=== PATIENT | female | born 1995 | race Caucasian/White ===

== ENCOUNTER 2016-12-28 02:01 | Inpatient (IN) | payer MEDICAID ==
[~2016-12-28] VITALS: Ht 162.6 cm; Wt 71.2 kg
[~2016-12-28 02:01] MED LIST: ABILIFY10 MG PO; AMOXIL500 MG PO; CELEXA10 MG PO; CENTRUM1 TAB PO; CIPRO 500MG TA500 MG PO; CONCERTA36 MG PO; GENTAMICIN O5 ML/BOT; IBU-4400 MG PO; LORATADINE 10MG10 M1 PO; MIXED AMPHETAMI20 MG PO; SEPTRA DS 800 M1 TAB PO
[2016-12-28 05:52] VITALS: BP 120/69
[2016-12-28] MEDS ORDERED: IRON TABLETS325 MG PO (05:56)
[2016-12-28] MEDS ORDERED: PRENATAL PLUS1 TA1 PO (05:56)
[2016-12-28 06:28] LABS: LYMPH # 2.2 K/mm3 (0.7-4.5); LYMPH % 19.7 % (10-50.0)
[2016-12-28 06:30] LABS: HEMOGLOBIN 11.7 g/dL (12.2-16.2)
[2016-12-28 06:37] LABS: AMPHETAMINES/METAMPHETAMINES NEGATIVE ng/mL (<1000)
[2016-12-28 07:13] LABS: ABO BLOOD TYPE A; RH BLOOD TYPE POSITIVE
[2016-12-28 07:15] VITALS: BP 110/64
--- NOTE | 2016-12-28 07:50 | LABOR NOTE ---
Laboring Subjective Subjective Date 12/28/16 Time 0749 Subjective: Pt is having regular contractions Laboring Objective Objective NST: Reactive Contractions: q 2-3 minutes Cervical dilation: 4 Effacement: 100% Station: -1 Membranes are: Artificially ruptured (with clear fluid) Fetus monitoring? Yes Type: External Laboring Assessment Assessment Progressing? Yes Cephalopelvic disproportion? No Problem List: 1. Delivery normal 2. Post-term Laboring Plan Plan Anethesia for epidural? No Continue to labor down? Yes Plan for ? No Continue to monitor? Yes Start pushing? No Comment: She is postterm and was found to be 3-4 cm in my office. As a result of that we have elected to augment her labor. at 0750
[2016-12-28 10:37] LABS: URINE BILIRUBIN - DIPSTICK NEGATIVE (NEG); URINE BLOOD NEGATIVE (NEG)
--- NOTE | 2016-12-28 10:39 | LABOR NOTE ---
Laboring Subjective Subjective Date 12/28/16 Time 1037 Subjective: Pt is having regular contractions Laboring Objective Objective NST: Reactive Contractions: q 2-3 minutes Cervical dilation: 5 Effacement: 100% Station: 0 Membranes are: Artificially ruptured (with clear fluid) Fetus monitoring? Yes Type: External Laboring Assessment Assessment Progressing? Yes Cephalopelvic disproportion? No Problem List: 1. Delivery normal 2. Post-term Laboring Plan Plan Anethesia for epidural? Yes Continue to labor down? Yes Plan for ? No Continue to monitor? Yes Start pushing? No at 1038
[2016-12-28 10:52] LABS: URINE SQUAMOUS CELLS OCC #/hpf (0-5)
--- NOTE | 2016-12-28 14:02 | LABOR NOTE ---
Laboring Subjective Subjective Date 12/28/16 Time 1400 Subjective: Pt is having regular contractions Laboring Objective Objective NST: Reactive Contractions: q 2-3 minutes Cervical dilation: 9 Effacement: 100% Station: +2 Membranes are: Artificially ruptured Fetus monitoring? Yes Type: External Laboring Assessment Assessment Progressing? Yes Cephalopelvic disproportion? No Problem List: 1. Delivery normal 2. Post-term Laboring Plan Plan Anethesia for epidural? Yes Continue to labor down? Yes Plan for ? No Continue to monitor? Yes Start pushing? Yes Comment: fully +2 so will try to push at 1401
--- NOTE | 2016-12-28 15:39 | Delivery Note ---
Delivery note Delivery date: 12/28/16 Delivery time: 151 Anesthesia: Epidural, Mekhi rGissom Was labor medically induced? Yes Method for inducing labor: Oxytocin Gestational age in weeks: 40 weeks Days: 3 days Delivery prior to 39 weeks? No Sex: male score at one minute: 5 at 5 minutes: 8 Type of suction: bulb AF: Clear fluid with terminal meconium LAC or MLE: LAC (2nd degree) Delivery procedure: Normal Delivery Delivery of placenta: spontaneous Clinical note She is a 21-year-old 1 para now 1 who was 40 and 3 weeks gestational age. She was feeling a lot of pressure and was found be 3-4 cm dilated. As result of that we elected to augment her labor. She was started on IV oxytocin had her membranes ruptured. She progressed under labor epidural to full dilation. She delivered spontaneously a liveborn male child at 3:13 PM in the afternoon of December 28, 2016. On delivery the head it was noted that there was a tight nuchal cord. This was doubly clamped and cut. The anterior shoulder then delivered followed by the rest of the 's body atraumatically. The baby cried spontaneously. The oropharynx and nasopharynx were bulb suctioned. The baby was then handed off to nurses who assigned Apgars of 5 at 1 minute and 8 at 5 minutes. We then obtained cord blood as well as cord pH. PH is pending. Using gentle traction on the cord and countertraction on the fundus I was able to easily deliver the placenta intact. It had a normal three-vessel cord. She had a second-degree perineal laceration that was repaired with 3-0 Vicryl suture to the superficial tissues and 2-0 Vicryl suture to the deep tissues. She has a positive blood, she is rubella immune and was group B streptococcus negative. She plans to breast-feed. Her asphalt tile floor layer is Dr. Johnson. Her estimated blood loss was approximately 800 mL. She did have some significant bleeding and she has received Hemabate as well as oxytocin. at 8320
--- NOTE | 2016-12-28 15:39 | Delivery Note ---
Delivery note Delivery date: 12/28/16 Delivery time: 151 Anesthesia: Epidural, Mekhi Grissom Was labor medically induced? Yes Method for inducing labor: Oxytocin Gestational age in weeks: 40 weeks Days: 3 days Delivery prior to 39 weeks? No Sex: male score at one minute: 5 at 5 minutes: 8 Type of suction: bulb AF: Clear fluid with terminal meconium LAC or MLE: LAC (2nd degree) Delivery procedure: Normal Delivery Delivery of placenta: spontaneous Clinical note She is a 21-year-old 1 para now 1 who was 40 and 3 weeks gestational age. She was feeling a lot of pressure and was found be 3-4 cm dilated. As result of that we elected to augment her labor. She was started on IV oxytocin had her membranes ruptured. She progressed under labor epidural to full dilation. She delivered spontaneously a liveborn male child at 3:13 PM in the afternoon of December 28, 2016. On delivery the head it was noted that there was a tight nuchal cord. This was doubly clamped and cut. The anterior shoulder then delivered followed by the rest of the 's body atraumatically. The baby cried spontaneously. The oropharynx and nasopharynx were bulb suctioned. The baby was then handed off to nurses who assigned Apgars of 5 at 1 minute and 8 at 5 minutes. We then obtained cord blood as well as cord pH. PH is pending. Using gentle traction on the cord and countertraction on the fundus I was able to easily deliver the placenta intact. It had a normal three-vessel cord. She had a second-degree perineal laceration that was repaired with 3-0 Vicryl suture to the superficial tissues and 2-0 Vicryl suture to the deep tissues. She has a positive blood, she is rubella immune and was group B streptococcus negative. She plans to breast-feed. Her implant polisher is Dr. Johnson. Her estimated blood loss was approximately 800 mL. She did have some significant bleeding and she has received Hemabate as well as oxytocin. at 7086
[2016-12-28 18:04] LABS: HEMOGLOBIN 11.7 g/dL (12.2-16.2)
[2016-12-28 21:00] VITALS: BP 122/56
[2016-12-29 07:21] LABS: HEMOGLOBIN 9.5 g/dL (12.2-16.2)
--- NOTE | 2016-12-29 08:12 | ACUTE CARE PROGRESS NOTE (QUA) ---
Progress Notes Subjective Date 12/29/16 Time 0810 Note She is doing well this morning. Her hemoglobin is stabilized. Her lochia is normal. She has not had any further episodes of bleeding. Patient/family reports: feeling better, no complaints Objective Findings Last VS-Temp:98.1 B/P:122/56 Pulse:86 Resp:18 SaO2: Last weight lbs:157 oz:0 K.215 Method:Floor Scales Laboratory Tests 12/29/16 0610: Hgb 9.5 L, Hct 27.6 L 12/28/16 1800: Hgb 11.7 L, Hct 33.1 L 12/28/16 1535: Cord Blood pH 7.26 L 12/28/16 1005: Urine Color YELLOW, Urine Appearance CLEAR, Urine pH 6.5, Ur Specific [place] 1.020, Urine Protein NEGATIVE, Urine Ketones NEGATIVE, Urine Blood NEGATIVE, Urine Nitrate NEGATIVE, Urine Bilirubin NEGATIVE, Urine Urobilinogen 0.2, Ur Leukocyte Esterase NEGATIVE, Urine RBC OCC, Urine WBC OCC, Ur Squamous Epith Cells OCC, Calcium Oxalate Crystal OCC, Urine Bacteria 1+, Urine Casts OCC, Urine Trichomonas OCC, Urine Glucose NEGATIVE Exam General appearance: normal appearance, alert, awake, no acute distress Reviewed: vital signs, lab results Assessment/Plan Problem List 1. Post-term 2. Delivery normal Patient condition Improving, Stable Plan: continue current care This inpt stay is expected to cross 2 MNs from start of care Yes Comments: She is doing very well and we'll plan to send her home today. at 0811
[2016-12-29 16:30] VITALS: BP 125/70
[2016-12-29 19:37] VITALS: BP 122/76
[2016-12-30 08:00] VITALS: BP 121/68
--- NOTE | 2016-12-30 08:32 | ACUTE CARE PROGRESS NOTE (QUA) ---
Progress Notes Subjective Date 12/30/16 Time 0831 Note She is doing very well this morning. She is eating and drinking and ambulating. Her lochia is normal. Her pain is controlled with just [id number] analgesics. Patient/family reports: feeling better, no complaints Objective Findings Last VS-Temp:98.4 B/P:122/76 Pulse:81 Resp:18 SaO2: Last weight lbs:157 oz:0 K.215 Method:Floor Scales Exam General appearance: normal appearance, alert, awake, no acute distress Reviewed: vital signs, lab results Assessment/Plan Problem List 1. Post-term 2. Delivery normal Patient condition Improving, Stable Plan: continue current care, initiate discharge plan This inpt stay is expected to cross 2 MNs from start of care Yes Comments: She is doing very well this morning. We'll plan to send her home. at 0831
--- NOTE | 2016-12-30 08:32 | ACUTE CARE PROGRESS NOTE (QUA) ---
Progress Notes Subjective Date 12/30/16 Time 0831 Note She is doing very well this morning. She is eating and drinking and ambulating. Her lochia is normal. Her pain is controlled with just [id number] analgesics. Patient/family reports: feeling better, no complaints Objective Findings Last VS-Temp:98.4 B/P:122/76 Pulse:81 Resp:18 SaO2: Last weight lbs:157 oz:0 K.215 Method:Floor Scales Exam General appearance: normal appearance, alert, awake, no acute distress Reviewed: vital signs, lab results Assessment/Plan Problem List 1. Post-term 2. Delivery normal Patient condition Improving, Stable Plan: continue current care, initiate discharge plan This inpt stay is expected to cross 2 MNs from start of care Yes Comments: She is doing very well this morning. We'll plan to send her home. at 0831
--- NOTE | 2016-12-30 08:35 | Discharge Summary ---
Discharge Summary Admission date: 12/28/16 Discharge date: 12/30/16 Discharge diagnoses: Postterm , spontaneous vaginal delivery Clinical note: She is a 21-year-old 1 now para 1 who was 40+ weeks gestational age. She was having pressure and occasional contractions and as result of that we elected to augment her labor. Course in hospital: She was started on IV oxytocin had her membranes ruptured. She progressed to full dilation and delivered spontaneously a liveborn male child at 3:13 PM in the afternoon of December 28, 2016. The baby was a liveborn male child weighing 8 lbs. 15 oz. and was 20 inches long. He had Apgars of 5 at 1 minute and 8 at 5 minutes. She has done well and has remained afebrile. Her hospitalization. Initially immediately after her delivery she did have some heavy bleeding but this resolved with Hemabate and IV oxytocin. She has been stable since this time. She has a positive blood, she is rubella immune and she was group B streptococcus negative. She is bottlefeeding. Her brazing machine operator is Dr. Johnson. Laboratory Tests 12/29/16 0610: Hgb 9.5 L, Hct 27.6 L 12/28/16 1800: Hgb 11.7 L, Hct 33.1 L 12/28/16 1535: Cord Blood pH 7.26 L 12/28/16 1005: Urine Color YELLOW, Urine Appearance CLEAR, Urine pH 6.5, Ur Specific [place] 1.020, Urine Protein NEGATIVE, Urine Ketones NEGATIVE, Urine Blood NEGATIVE, Urine Nitrate NEGATIVE, Urine Bilirubin NEGATIVE, Urine Urobilinogen 0.2, Ur Leukocyte Esterase NEGATIVE, Urine RBC OCC, Urine WBC OCC, Ur Squamous Epith Cells OCC, Calcium Oxalate Crystal OCC, Urine Bacteria 1+, Urine Casts OCC, Urine Trichomonas OCC, Urine Glucose NEGATIVE 12/28/16 0550: MCH 31.3 H 12/28/16 0550: WBC 11.3, RBC 3.73 L, Hgb 11.7 L, Hct 34.4 L, MCV 92.3, RDW 13.1, Plt Count 231, MPV 6.3 L, Gran % 72.1, Gran # 8.2 H, Lymphocytes % 19.7, Monocytes % 7.0 , Eosinophils % 1.0, Basophils % 0.3, Lymphocytes # 2.2, Monocytes # 0.8, Eosinophils # 0.1, Basophils # 0.0, PUBS MCHC 33.9, Antibody Screen NEGATIVE, Miscellaneous Test POSITIVE 12/28/16 0530: Opiates Screen NEGATIVE, Urine Methadone Screen NEGATIVE, Barbiturates NEGATIVE, Phencyclidine Screen NEGATIVE, Amphetamines Screen NEGATIVE, Benzodiazepines Screen NEGATIVE, Cocaine Screen NEGATIVE, Marijuana (THC) Screen POSITIVE H Plans for ongoing care: She is discharged home to follow-up with me in approximately 2 weeks' time. Discharge medications She'll continue with her vitamins and iron. She will take over-the- counter analgesics for any pain that she has. DC/follow-up instructions She was given the usual instructions with respect to limiting her activity, driving and sexual activity. Condition at discharge Stable and improved at 0834
== END 2016-12-30 10:50 | disposition home or self-care (01) | DRG 774 ==
LOC: OB 02:01
PROVIDERS: Nurse Practitioner Obstetrics & Gynecology
PROC: 0KQM0ZZ Repair Perineum Muscle, Open Approach (ICD-10-PCS; principal; 2016-12-28)
PROC: 10E0XZZ Delivery of Products of Conception, External Approach (ICD-10-PCS; principal; 2016-12-28)
DX: O70.1 Second degree perineal laceration during delivery (principal); O72.1 Other immediate postpartum hemorrhage; Z37.0 Single live birth; O99.323 Drug use complicating pregnancy, third trimester; Z3A.40 40 weeks gestation of pregnancy; F12.90 Cannabis use, unspecified, uncomplicated
CPT/HCPCS: J2405